=== PATIENT | male | born 1980 | race Caucasian/White ===

== ENCOUNTER 2017-04-04 09:36 | Emergency (ER) | payer OTHER ==
[2017-04-04 09:47] VITALS: BMI 36.1
--- NOTE | 2017-04-04 09:56 | PDOC ---
Attending Attestation - Physicial Exam PE: 04/04/17 10:53 GENERAL: Awake, alert, and fully oriented, in no acute distress HEAD: No signs of trauma EYES: PERRLA, EOMI, sclera anicteric, conjunctiva clear ENT: Auricles normal inspection, hearing grossly normal, nares patent, oropharynx clear without exudates. Moist mucosa NECK: Normal ROM, supple, no lymphadenopathy, JVD, or masses LUNGS: Breath sounds equal, clear to auscultation bilaterally. No wheezes, and no crackles HEART: Regular rate and rhythm, normal S1 and S2, no murmurs, rubs or gallops ABDOMEN: Soft, nontender, normoactive bowel sounds. No guarding, no rebound. No masses EXTREMITIES: Normal range of motion, no edema. No clubbing or cyanosis. No cords, erythema, or tenderness NEUROLOGICAL: Cranial nerves II through XII grossly intact. Normal speech, normal gait SKIN: Warm, Dry, normal turgor, no rashes or lesions noted. - Medical Decision Making 04/04/17 10:54 Documentation prepared by Lane Armstrong, acting as medical csr for Esther Seals DO. <Lane Armstrong - Last Filed: 04/04/17 12:17> - Resident Resident Name: Tay Neal - ED Attending Attestation I have performed the following: I have examined & evaluated the patient, The case was reviewed & discussed with the resident, I agree w/resident's findings & plan, Exceptions are as noted - HPI HPI: 04/04/17 10:40 36yo male with a hx of cardiomyopathy/myocarditis from a back surgery in the past presents for intermittent episodes of CP x weeks. Saw his PMD on tuesday, Dr. Cool, who recommended coming to the ED next time he has cp. No longer on Lasix. Coreg dose reduced to 12.5. Last stress test was about 6m ago. No hx of cardiac cath in the past. States driving today. States diaphoresis, midsternal cp, assoc nausea. No sob. No leg cramping/calf swelling, no recent travel. NO pleuritic cp. No cough. No f/c. No v. C/o diarrhea 3 episodes per day x 3 days. No urinary complaints. No radiation of the pain. No other complaints. - Medical Decision Making 04/04/17 10:09 I, Dr. Esther Seals, DO, attest that this document has been prepared under my direction and personally reviewed by me in its entirety. I further attest, that it accurately reflects all work, treatment, procedures and medical decision -making performed by me. 04/04/17 10:47 a/p: 36yo male with intermittent episodes of CP (never during exercise - usually at work/driving to work) -ekg -labs -trop -cxr -re-eval 04/04/17 15:20 repeat ekg: sinus at 80, nl axis, nl interval, no acute st/t wave findings 04/04/17 16:07 repeat lab work shows normal troponin. repeat ekg shows no acute st/t wave findings. pt stable for d/c to home. follow up with his PMD <Esther Seals - Last Filed: 04/04/17 16:11> Discharge Disposition - Discharge Dispostion Last Admission D/C Date: 03/20/16 Admit: No <Esther Seals - Last Filed: 04/04/17 16:11> - Diagnosis Palpitations - Discharge Dispostion Disposition: HOME Condition at time of disposition: Stable - Referrals Referrals: Gopal Cool MD [Primary Care Provider] - - Patient Instructions Printed Discharge Instructions: DI for Atypical Chest Pain Additional Instructions: You were seen for a sensation of your heart racing and some chest discomfort. We took a look at your heart enzymes and EKGs that were all negative for any new heart damage. We spoke with your PCP and we agreed that you should go home, take it easy for a the days and make sure to follow up with him as soon as you can. Please return to the ED if you have worsening chest pain or other concerning symptoms. - Post Discharge Activity Work/School Note: Back to Work Heart Score/ECG Review - ECG Intrepretation Comment:: 04/04/17 10:09 sinus at 88, nl axis, nl interval, nonspecific t wave inversions III, no achanges from prior 03/17/16 <Esther Seals - Last Filed: 04/04/17 16:11>
[2017-04-04] MEDS ORDERED: ASPIRIN 81 MG CHEWABLE TABLETS PO ONE (10:32)
[2017-04-04] MEDS ORDERED: ASPIRIN 81 MG CHEWABLE TABLETS ONE (10:46)
--- NOTE | 2017-04-04 10:49 | PDOC ---
History of Present Illness - General Chief Complaint: Chest Pain Stated Complaint: CHEST PAIN - History of Present Illness Initial Comments: 36 year old male with PMH of CHF (post myocarditis in the setting of spinal surgery), chronic back pain, and GERD presenting for chest discomfort, palpitations, nausea, and generally feeling unwell briefly earlier today. He has had similar chest discomfort and palpitations over the past few years but they weren't as bad and weren't as frequent. Over the past 6 months they have become more frequent and more bothersome. He relates the onset of these episodes to his stress levels related to work. In fact, he was returning to work from his vacation and began contemplating scaling back his work duties when this particular episode came on. It resolved after approximately 10 minutes although he is still have a "heart racing" sensation. Only admits to nausea and facial flushing as a co-presenting symptom. Had a negative stress test a few months prior. Denies SOB, vomiting, pain, radiation of sensation, paresthesias, numbness, cough, or other symptoms. His PCP is his uncle Gopal Cool. 04/04/17 10:39 Past History - Past Medical History Allergies/Adverse Reactions: Allergies Allergy/AdvReac Type Severity Reaction Status Date / Time No Known Allergies Allergy Verified 04/04/17 09:47 Home Medications: Ambulatory Orders Pantoprazole Sodium [Protonix -] 40 mg PO DAILY 09/17/15 Atorvastatin Ca [Lipitor] 20 mg PO HS 03/17/16 Oxycodone HCl [Oxycodone HCl ER] 10 mg PO QID PRN 03/17/16 Carvedilol [Coreg] 12.5 mg PO BID 04/04/17 Anemia: No Asthma: No Cardiac Disorders: Yes (MYOCARDITIS) CVA: No COPD: No CHF: No Dementia: No Diabetes: No GI Disorders: Yes Disorders: No HTN: No Hypercholesterolemia: Yes Liver Disease: No Seizures: No Thyroid Disease: No Other medical history: PAIN - Surgical History Abdominal Surgery: Yes ("TUMMY TUCK") Appendectomy: No Cardiac Surgery: No Cholecystectomy: No Lung Surgery: No Neurologic Surgery: No Orthopedic Surgery: Yes - Immunization History Immunization Up to Date: No - Psycho/Social/Smoking Cessation Hx Anxiety: No Suicidal Ideation: No Smoking History: Former smoker Have you smoked in the past 12 months: No If you are a former smoker, when did you quit?: 7 YEARS + Information on smoking cessation initiated: No Hx Alcohol Use: No Drug/Substance Use Hx: No Substance Use Type: None Hx Substance Use Treatment: No Review of Systems - Review of Systems Constitutional: No: Chills, Diaphoresis, Fever HEENTM: No: Blurred Vision, Ear Pain Respiratory: No: Cough, Orthopnea, Shortness of Breath Cardiac (ROS): Yes: Palpitations, Chest Tightness. No: Chest Pain, Edema, Lightheadedness, Syncope ABD/GI: No: Diarrhea, Vomiting, Indigestion : No: Dysuria, Discharge, Frequency Musculoskeletal: Yes: Back Pain, Joint Pain Neurological: No: Headache, Numbness Psychiatric: Yes: Stressors *Physical Exam - Vital Signs Last Vital Signs Temp Pulse Resp BP Pulse Ox 97.8 F 85 18 154/100 99 04/04/17 09:38 04/04/17 09:38 04/04/17 09:38 04/04/17 09:38 04/04/17 09:38 - Physical Exam General Appearance: Yes: Nourished, Appropriately Dressed. No: Apparent Distress HEENT: positive: EOMI, SHREE, Normal ENT Inspection Neck: positive: Trachea midline, Normal Thyroid, Supple. negative: Tender, Rigid Respiratory/Chest: positive: Lungs Clear, Normal Breath Sounds. negative: Chest Tender, Respiratory Distress Cardiovascular: positive: Regular Rhythm, Tachycardia Gastrointestinal/Abdominal: positive: Normal Bowel Sounds, Flat, Soft. negative : Tender, Organomegaly Musculoskeletal: positive: Normal Inspection Extremity: positive: Normal Inspection Integumentary: positive: Normal Color, Dry, Warm, Other (Heavily tatood individual across his entire body from his neck downward. No signs of rash or skin breakage.) Neurologic: positive: Fully Oriented, Alert, Normal Mood/Affect Heart Score/ECG Review - History History: Slightly suspicious - Electrocardiogram EKG: Normal - Age Age: </= 45 - Risk Factors Risk Factors Heart Score: Yes Hx Hypercholesterolemia, Yes Hx Hypertension Based on the list above the patient has:: 1-2 risk factors - Troponin Troponin: </= normal limit - Score Heart Score - Total: 1 - ECG Intrepretation Rhythm: Regular Rhythm - [place]: Normal - ST and T Non Specific ST-T Wave changes: Yes Comment:: V2, v3, V4 ST wave changes are chronic per his EKG from 03/17/16 04/04/17 10:59 ED Treatment Course - LABORATORY CBC & Chemistry Diagram: 04/04/17 11:15 04/04/17 11:15 - RADIOLOGY Radiology Studies Ordered: Category Date Time Status CHEST PA & LAT [RAD] Stat Radiology 04/04/17 10:33 Ordered Medical Decision Making - Medical Decision Making 36 year old male with PMH of post op myocarditis and CHF presenting with palpitations and chest discomfort. Although he has a low Heart score of 1, he had myocarditis in the past and is at risk for cardiac event. EKG showing the same ST changes from last year. Will get cardiac panel, CMP, CBC, BNP, and CXR. Stress test negative a few months prior. 04/04/17 10:59 Trop negative. CK elevated to 800s. Cr. 1.2. Per conversation with his PCP Dr. Gopal Cool, he is OK to send patient home with follow up. Will draw a second Troponin and EKG negative at 15:15 and discharge patient given no abnormalities. He will follow up with Gopal Cool in the next few days. 04/04/17 12:51 04/04/17 19:31 *DC/Admit/Observation/Transfer Diagnosis at time of Disposition: Palpitations - Discharge Dispostion Disposition: HOME Condition at time of disposition: Stable Admit: No - Referrals Referrals: Gopal Cool MD [Primary Care Provider] - - Patient Instructions Printed Discharge Instructions: DI for Atypical Chest Pain Additional Instructions: You were seen for a sensation of your heart racing and some chest discomfort. We took a look at your heart enzymes and EKGs that were all negative for any new heart damage. We spoke with your PCP and we agreed that you should go home, take it easy for a the days and make sure to follow up with him as soon as you can. Please return to the ED if you have worsening chest pain or other concerning symptoms. - Post Discharge Activity Work/School Note: Back to Work
[2017-04-04 11:23] LABS: BASOPHIL 0.5 % (0-2.0); EOSINOPHIL 1.6 % (0-4.5); MCH 28.1 pg (25.7-33.7); MCHC 33.7 g/dl (32.0-35.9); MEAN CELL VOLUME 83.5 fl (80-96); MEAN PLT VOLUME 8.9 fl (7.5-11.1); NEUTROPHILS 58.8 % (42.8-82.8); PLATELET COUNT 166 K/MM3 (134-434); RDW 13.7 % (11.9-15.9); WHITE BLOOD COUNT 6.3 K/mm3 (4.0-10.0)
[2017-04-04] MEDS ORDERED: oxyCODONE HCL 5 MG TABLET PO ONE (11:24)
[2017-04-04 11:48] LABS: ALBUMIN 3.8 g/dl (3.4-5.0); ANION GAP 10 (8-16); CALCIUM 8.9 mg/dL (8.5-10.1); CO2 24 mmol/L (21-32); CREATININE 1.2 mg/dL (0.7-1.3); GLUCOSE,RANDOM 99 mg/dL (74-106); MAGNESIUM 1.9 mg/dL (1.8-2.4); PHOSPHOROUS 3.4 mg/dL (2.5-4.9); SGOT/AST 44 U/L (15-37); SGPT/ALT 71 U/L (12-78)
[2017-04-04] MEDS ORDERED: oxyCODONE HCL 5 MG TABLET ONE (11:49)
[2017-04-04 11:51] LABS: ALK PHOS 140 U/L (45-117); BILIRUBIN,TOTAL 0.8 mg/dL (0.2-1.0); CPK 848 IU/L (39-308); TOT PROT 7.2 g/dl (6.4-8.2)
[2017-04-04 11:52] LABS: TROPONIN I < 0.02 ng/ml (0.00-0.05)
[2017-04-04] MEDS ORDERED: SODIUM CHLORIDE 0.9% 1000 ML INFUS.BAG IV ONE (11:52)
[2017-04-04 14:42] VITALS: TEMP 98.2
[2017-04-04 15:47] LABS: CPK 677 IU/L (39-308); TROPONIN I < 0.02 ng/ml (0.00-0.05)
[2017-04-04 16:55] VITALS: BP 135/84; PULSE 82
--- NOTE | 2017-04-04 21:24 | EKG ---
Test Reason : Blood Pressure : / mmHG Vent. Rate : 080 BPM Atrial Rate : 080 BPM P-R Int : 160 ms QRS Dur : 080 ms QT Int : 320 ms P-R-T Axes : 039 033 020 degrees QTc Int : 369 ms NORMAL SINUS RHYTHM NORMAL ECG WHEN COMPARED WITH ECG OF 04-APR-2017 09:45, NO SIGNIFICANT CHANGE WAS FOUND Confirmed by JYOTI BECK MD ([id number]) on 04/04/2017 9:24:27 PM Referred By: Confirmed By:JYOTI BECK MD
--- NOTE | 2017-04-04 21:30 | EKG ---
Test Reason : Blood Pressure : / mmHG Vent. Rate : 088 BPM Atrial Rate : 088 BPM P-R Int : 150 ms QRS Dur : 084 ms QT Int : 318 ms P-R-T Axes : 045 046 020 degrees QTc Int : 384 ms NORMAL SINUS RHYTHM CANNOT RULE OUT ANTERIOR INFARCT , AGE UNDETERMINED ABNORMAL ECG WHEN COMPARED WITH ECG OF 17-MAR-2016 15:46, NO SIGNIFICANT CHANGE WAS FOUND Confirmed by JYOTI BECK MD ([id number]) on 04/04/2017 9:30:28 PM Referred By: Confirmed By:JYOTI BECK MD
== END 2017-04-04 16:40 | disposition home or self-care (01) ==
LOC: JER 09:36
DX: R00.2 Palpitations (principal)
CPT/HCPCS: 36415; 71020-TC; 80053; 82553; 83735; 83880; 84100; 84484; 85025; 93005; 93010; 99284-25

== ENCOUNTER 2017-08-10 05:53 | Day surgery (SDC) | payer OTHER ==
[2017-08-03 18:52] VITALS: BMI 34.7
--- NOTE | 2017-08-04 10:53 | HP ---
DATE OF ADMISSION: 08/10/2017 DATE OF SURGERY: 08/10/2017 REASON FOR ADMISSION: Back lipoma x2. BRIEF HISTORY: This is a 36-year-old gentleman with 2 lipomas on his right back. The one (most lateral lipoma) causes him exquisite discomfort, and because of that, he wishes to have both of these removed. PAST MEDICAL HISTORY: Significant for peptic ulcer disease, coronary artery disease, mild congestive heart failure, ejection fraction approximately 50%. PAST SURGICAL HISTORY: Patient has had a multitude of back surgeries, orthopedic procedures on hips, elbows, and knees. ALLERGIES: None. SOCIAL HISTORY: Patient does not smoke. He drinks socially. MEDICATIONS: Coreg 12.5 mg b.i.d., Protonix, aspirin, and a multivitamin. PHYSICAL EXAMINATION: Lungs: Clear. Heart: Regular rate and rhythm. Abdomen: Soft. Back: Patient has a midline scar in his back. Approximately 2 fingerbreadths above the top of the scar line and 3 fingerbreadths to the right is a soft tissue mass that is 1.5 to 2 cm in size and oblong in shape. It is oriented almost transversely/obliquely. The mass is fairly soft, well demarcated. From that mass, 4 fingerbreadths more lateral and at a 30-degree angle inferiorly is a second mass that is noted of similar nature and character. That second mass is the one that is exquisitely tender even on exam. No overlying skin changes to suggest infection or inflammation. IMPRESSION/PLAN: Back lipoma x2. We will plan for excision in the operating room under local anesthesia. The indications, alternatives, and complications discussed. Questions answered. We will plan to obtain written consent the day of surgery. Manuel UMANZOR [id number] cc: Gopal Cool MD
[2017-08-10] MEDS ORDERED: LIDOCAINE HCL 1%, 10 MG/ML (20ML VIAL) ONE (07:18)
[2017-08-10] MEDS ORDERED: ceFAZolin SODIUM 1 GM VIAL ONE (07:41)
[2017-08-10] MEDS ORDERED: DEXAMETHASONE SOD PHOSPHATE 4 MG/1 ML VIAL ONE (07:42)
[2017-08-10] MEDS ORDERED: SUCCINYLCHOLINE CHLORIDE 200 MG/10 ML VIAL ONE (07:42)
[2017-08-10] MEDS ORDERED: MIDAZOLAM HCL 2 MG/2 ML SINGLE DOSE VIAL ONE ×2 (07:42→08:01)
[2017-08-10] MEDS ORDERED: KETOROLAC TROMETHAMINE 30 MG/1 ML VIAL ONE (07:42)
[2017-08-10] MEDS ORDERED: PROPOFOL 20 ML ONE (07:42)
[2017-08-10] MEDS ORDERED: ONDANSETRON 4 MG/2 ML VIAL ONE (07:42)
[2017-08-10] MEDS ORDERED: KETAMINE HCL 200 MG/20 ML VIAL ONE (08:02)
[2017-08-10] MEDS ORDERED: LIDOCAINE 1% P/F 10 MG/ML VIAL INF ONE (08:08)
[2017-08-10 08:47] VITALS: TEMP 97.4
[2017-08-10] MEDS ORDERED: oxyCODONE HCL 5 MG TABLET ONE (08:54)
[2017-08-10 09:27] VITALS: BP 123/82; PULSE 84
--- NOTE | 2017-08-10 09:32 | OP ---
DATE OF OPERATION: 08/10/2017 PREOPERATIVE DIAGNOSIS: Back lipoma x2. POSTOPERATIVE DIAGNOSIS: Back lipoma x2. PROCEDURE: Excision, back lipoma x2, with a total of 8-cm wound closure. SURGEON: Curtis Parker MD GREENSMAN: None. ANESTHESIA: Allen Sr MD (MAC/1% lidocaine without epinephrine, approximately 8 mL). ESTIMATED BLOOD LOSS: Minimal. SPECIMEN: Back lipoma x2. INDICATION FOR PROCEDURE: This is a 36-year-old gentleman with 2 back lipomas that cause him discomfort. He wished to have these removed. Patient identified and appropriately positioned on the operating room table. The area prepped and draped in the usual sterile fashion with ChloraPrep. Lidocaine 1% without epinephrine was used for local anesthesia, approximately 8 mL. Two 4-cm incisions were made overlying the area of the lipomas total for 8 cm. The lipomas were then sharply excised intact and en bloc. Hemostasis achieved with direct pressure as needed. The dermis reapproximated with interrupted inverted 3-0 Vicryl suture and the skin closed with 4-0 subcuticular Biosyn on both sites. At the conclusion of the case, sponge and instrument counts correct. ATTESTATION: Brief operative note hand written on the preprinted form. [facility] queried prior to giving narcotics. Manuel UMANZOR [id number] cc: Gopal Cool MD
[2017-08-10] MEDS ORDERED: oxyCODONE HCL 5 MG TABLET PO PRN ×2 (09:42)
[2017-08-10] MEDS ORDERED: ACETAMINOPHEN 325 MG TABLET (FP) PO PRN (09:42)
[2017-08-10] MEDS ORDERED: ONDANSETRON 4 MG/2 ML VIAL IVPUSH PRN (09:42)
[2017-08-10] MEDS ORDERED: LACTATED RINGERS SOLUTION 1,000 ML IV SCH (09:45)
== END 2017-08-10 09:29 | disposition home or self-care (01) ==
LOC: FASU 05:53
PROVIDERS: ATTEND Surgery
PROC: 0JB70ZZ Excision of Back Subcutaneous Tissue and Fascia, Open Approach (ICD-10-PCS; principal; 2017-08-10 08:08)
DX: D17.1 Benign lipomatous neoplasm of skin and subcutaneous tissue of trunk (principal); I25.10 Atherosclerotic heart disease of native coronary artery without angina pectoris; I50.9 Heart failure, unspecified

== ENCOUNTER 2017-11-30 09:38 | Emergency (ER) | payer OTHER ==
[2017-11-30 09:56] VITALS: BMI 34.0
[2017-11-30 11:07] LABS: BASO % 0.6 % (0-2.0); EOS % 1.1 % (0-4.5); HEMATOCRIT 51.4 % (35.4-49); HEMOGLOBIN 17.5 GM/dL (11.7-16.9); LYMPH % 23.7 % (8-40); MCH 29.8 pg (25.7-33.7); MEAN CELL VOLUME 87.7 fl (80-96); MEAN PLT VOLUME 8.8 fl (7.5-11.1); MONO % 7.4 % (3.8-10.2); NEUT % 67.2 % (42.8-82.8); PLATELET COUNT 204 K/MM3 (134-434); RBC 5.85 M/mm3 (4.00-5.60); RDW 13.8 % (11.9-15.9); WHITE BLOOD COUNT 6.9 K/mm3 (4.0-10.0)
--- NOTE | 2017-11-30 11:31 | PDOC ---
History of Present Illness - General History Source: Patient Exam Limitations: No Limitations - History of Present Illness Initial Comments: 11/30/17 11:46 The patient is a 37 year old male with history of chronic back pain s/p L4-L5 diskectomy c/b myocarditis (last known EF 50), with frequent sacroiliac spinal injections for pain, who presents to the ED complaining of diffuse tingling to the bilateral upper and lower extremities, trunk, and face that began last night. He reports he had a injection to his SI joint yesterday. A few hours later, he began to experience his diffuse tingling sensation which was associated with nausea and a "flushed face". His tingling lasted for several hours and is now somewhat improved. The patient denies any headache or blurred vision. Denies focal weakness, stiff neck. Denies fevers/chills. He denies chest pain or shortness of breath. She does endorse chronic bilateral lower extremity swelling, worse on the left side, unchanged. Reports multiple negative DVT studies to evaluate the edema. Denies possible exposure to ticks. The patient does note he has been on a Keto diet for the past several weeks ( high fat and protein, restricted carbohydrates). He has had several of the same injections in the past without adverse effect. <Marisa Harper - Last Filed: 11/30/17 16:27> <Paco Whitman - Last Filed: 12/02/17 20:24> - General Chief Complaint: CVA/TIA Stated Complaint: NUMBNESS IN BODY Time Seen by Provider: 11/30/17 10:05 Past History <Marisa Harper - Last Filed: 11/30/17 16:27> - Past Medical History Anemia: No Asthma: No Cancer: No Cardiac Disorders: Yes (DEVELOPED MYOCARDITIS AFTER DISCECTOMY IN 2008) CVA: No COPD: No CHF: No DVT: No Dementia: No Diabetes: No GI Disorders: Yes Disorders: No HTN: No Hypercholesterolemia: No Liver Disease: No Seizures: No Thyroid Disease: No - Surgical History Abdominal Surgery: Yes ("TUMMY TUCK") Appendectomy: No Cardiac Surgery: No Cholecystectomy: No Lung Surgery: No Neurologic Surgery: No Orthopedic Surgery: Yes (DISCECTOMY WITH FUSION 2008) - Immunization History Immunization Up to Date: No - Suicide/Smoking/Psychosocial Hx Smoking History: Former smoker Have you smoked in the past 12 months: No If you are a former smoker, when did you quit?: 1999 Information on smoking cessation initiated: No Hx Alcohol Use: No Drug/Substance Use Hx: No Substance Use Type: None Hx Substance Use Treatment: No <Paco Whitman - Last Filed: 12/02/17 20:24> - Past Medical History Allergies/Adverse Reactions: Allergies Allergy/AdvReac Type Severity Reaction Status Date / Time No Known Allergies Allergy Verified 11/30/17 09:49 Home Medications: Ambulatory Orders Pantoprazole Sodium [Protonix -] 40 mg PO DAILY 09/17/15 Oxycodone HCl [Oxycodone HCl ER] 10 mg PO QID PRN 03/17/16 Carvedilol [Coreg] 12.5 mg PO BID 04/04/17 Aspirin Coated [Ecotrin -] 81 mg PO DAILY 08/03/17 Atorvastatin Ca [Lipitor] 40 mg PO HS 08/03/17 Review of Systems - Review of Systems Able to Perform ROS?: Yes Comments:: 11/30/17 11:46 GENERAL/CONSTITUTIONAL: No fever or chills. HEAD, EYES, EARS, NOSE AND THROAT: No change in vision. No ear pain or discharge. No sore throat. GASTROINTESTINAL: No nausea, vomiting, diarrhea or constipation. GENITOURINARY: No dysuria, frequency, or change in urination. CARDIOVASCULAR: No chest pain or shortness of breath. RESPIRATORY: No cough, wheezing, or hemoptysis. MUSCULOSKELETAL: No joint or muscle swelling or pain. No neck or back pain. SKIN: No rash NEUROLOGIC: +Tingling (face, trunk, b/l UE and LE). No headache, vertigo, loss of consciousness, or change in strength/sensation. ENDOCRINE: No increased thirst. No abnormal weight change. HEMATOLOGIC/LYMPHATIC: No anemia, easy bleeding, or history of blood clots. ALLERGIC/IMMUNOLOGIC: No hives or skin allergy. <Marisa Harper - Last Filed: 11/30/17 16:27> *Physical Exam - Vital Signs Last Vital Signs Temp Pulse Resp BP Pulse Ox 97.8 F 80 17 117/70 98 11/30/17 09:49 11/30/17 09:49 11/30/17 09:49 11/30/17 09:49 11/30/17 10:27 - Physical Exam Comments: 11/30/17 11:53 GENERAL: Awake, alert, and fully oriented, in no acute distress HEAD: No signs of trauma EYES: PERRLA, EOMI, sclera anicteric, conjunctiva clear ENT: Auricles normal inspection, hearing grossly normal, nares patent, oropharynx clear without exudates. Moist mucosa NECK: Normal ROM, supple, no lymphadenopathy, JVD, or masses LUNGS: Breath sounds equal, clear to auscultation bilaterally. No wheezes, and no crackles HEART: Regular rate and rhythm, normal S1 and S2, no murmurs, rubs or gallops ABDOMEN: Soft, nontender, normoactive bowel sounds. No guarding, no rebound. No masses EXTREMITIES: Normal range of motion. No clubbing or cyanosis. No cords, erythema, or tenderness. L>R calf non pitting edema. BACK: No midline spinal tenderness in cervical/thoracic/lumbar region NEUROLOGICAL: Normal speech, cranial nerves intact, negative pronator drift, 5/ 5 strength in all 4 extremities, normal sensation to light touch in all 4 extremities, normal cerebellar exam, normal gait, normal reflexes and tone SKIN: Warm, Dry, normal turgor, no rashes or lesions noted. <Marisa Harper - Last Filed: 11/30/17 16:27> - Vital Signs Last Vital Signs Temp Pulse Resp BP Pulse Ox 97.8 F 80 17 117/70 98 11/30/17 09:49 11/30/17 09:49 11/30/17 09:49 11/30/17 09:49 11/30/17 10:27 <Paco Whitman - Last Filed: 12/02/17 20:24> ED Treatment Course - LABORATORY CBC & Chemistry Diagram: 11/30/17 10:55 11/30/17 10:55 - ADDITIONAL ORDERS Additional order review: 11/30/17 10:55 RBC 5.85 H MCV 87.7 MCHC 34.0 RDW 13.8 MPV 8.8 Neutrophils % 67.2 Lymphocytes % 23.7 D Monocytes % 7.4 Eosinophils % 1.1 Basophils % 0.6 <Marisa Harper - Last Filed: 11/30/17 16:27> - LABORATORY CBC & Chemistry Diagram: 11/30/17 10:55 11/30/17 10:55 - ADDITIONAL ORDERS Additional order review: 11/30/17 10:55 RBC 5.85 H MCV 87.7 MCHC 34.0 RDW 13.8 MPV 8.8 Neutrophils % 67.2 Lymphocytes % 23.7 D Monocytes % 7.4 Eosinophils % 1.1 Basophils % 0.6 - RADIOLOGY Radiology Studies Ordered: Category Date Time Status HEAD CT WITHOUT CONTRAST [CT] Stat CT Scan 11/30/17 10:47 Ordered <Paco Whitman - Last Filed: 12/02/17 20:24> Medical Decision Making - Medical Decision Making 11/30/17 12:[address] without contrast, read and reviewed by Dr. Soliz Impression: No acute intracranial hemorrhage, mass effect, hydrocephalus, or calvarial fracture. 11/30/17 16:[address] without contrast. Impression: The alignment is satisfactory. No gross fracture or subluxation is seen. Minimal degenerative disc disease and antterior spondylosis at C5-C6 and C6-C7 level. C4-C5 minimal left paracentral disc bulge and posterior spur formation without cord or nerve root impingement. <Marisa Harper - Last Filed: 11/30/17 16:27> - Medical Decision Making 11/30/17 11:27 37-year-old male with a history of chronic back pain, cardiomyopathy now with recovered EF of 50-60%, hyperlipidemia presents the emergency department with diffuse body numbness, worse peripherally. Vitals within normal limits. Neurologic exam completely normal. No exposure to ticks recently. Differential includes but not limited to anemia versus electrolyte abnormality vs neuropathy -labs -UA -CTH -IVF -neuro c/s 11/30/17 12:55 CTH negative 11/30/17 13:25 Labs wnl, excpt Mg 1.7 -> 1G Mg sulfate ordered. Pt states no change in sxs after IVF. Neuro c/s placed, awaiting call back 11/30/17 13:[address] Amanda (neuro), sxs unlikely result of SI injection yesterday as he has sxs in UE's as well. Dr. Amanda says symptoms unlikely to be neurologic, possibly psychosomatic? He recommends also getting CT of cervical spine, however, given sxs in all [address] c-spine ordered, pt updated at this time about need for CT scan of neck as well. 11/30/17 15:26 CT scan still pending, will call radiology dept. 11/30/17 16:20 CT cervical spine negative for acute pathology. Call placed to Dr. Gopal Cool , his PMD, awaiting call back. 11/30/17 16:[address] Gopal Cool. All workup reviewed, wants to see pt in 1 -2 days. Plan discussed with patient, who was upset about long stay in ED, however explained to patient that he required multiple studies including 2 CT scans, blood work, urinalysis, and specialist consultation to work up his symptoms. Pt expresses understanding and requests DC home. I discussed the physical exam findings, ancillary test results and final diagnoses with the patient. I answered all of the patient's questions. The patient was satisfied with the care received and felt comfortable with the discharge plan and treatment plan. The patient will call their primary care physician within 24 hours to arrange follow-up and will return to the Emergency Department with any new, persistent or worsening symptoms. <Paco Whitman - Last Filed: 12/02/17 20:24> *DC/Admit/Observation/Transfer - Attestations Scribe Attestion: 11/30/17 11:54 Documentation prepared by Marisa Harper, acting as medical affairs manager for Paco Whitman MD. <Marisa Harper - Last Filed: 11/30/17 16:27> - Discharge Dispostion Decision to Admit order: No - Attestations Physician Attestion: 11/30/17 16:53 I, Dr. Paco Whitman MD, attest that this document has been prepared under my direction and personally reviewed by me in its entirety. I further attest, that it accurately reflects all work, treatment, procedures and medical decision -making performed by me. <Paco Whitman - Last Filed: 12/02/17 20:24> Diagnosis at time of Disposition: Numbness and tingling - Discharge Dispostion Disposition: HOME Condition at time of disposition: Stable - Referrals Referrals: Gopal Cool MD [Primary Care Provider] - Zeferino Amanda MD [Staff Physician] - - Patient Instructions Printed Discharge Instructions: DI for Numbness/tingling Additional Instructions: As discussed, follow up with Dr. Cool within 1-[address] Shah for a follow up appointment with neurology within 1 week. Return to the emergency department if you have any new, worsening, or concerning symptoms. - Post Discharge Activity
[2017-11-30] MEDS ORDERED: SODIUM CHLORIDE 1,000 ML IV STA (11:32)
[2017-11-30 12:23] LABS: ALBUMIN 3.3 g/dl (3.4-5.0); ANION GAP 5 (8-16); BLOOD UREA NITROGEN 19 mg/dL (7-18); CALCIUM 9.4 mg/dL (8.5-10.1); CHLORIDE 106 mmol/L (98-107); CO2 29 mmol/L (21-32); GLUCOSE,RANDOM 100 mg/dL (74-106); MAGNESIUM 1.7 mg/dL (1.8-2.4); POTASSIUM 4.2 mmol/L (3.5-5.1); SGOT/AST 16 U/L (15-37); SGPT/ALT 12 U/L (12-78); SODIUM 140 mmol/L (136-145)
[2017-11-30 12:26] LABS: ALK PHOS 42 U/L (45-117); BILIRUBIN,TOTAL 0.3 mg/dL (0.2-1.0); CREATININE 0.7 mg/dL (0.7-1.3); TOT PROT 6.1 g/dl (6.4-8.2)
[2017-11-30] MEDS ORDERED: ACETAMINOPHEN 500 MG TABLET (FP) PO ONE (13:49)
[2017-11-30] MEDS ORDERED: ACETAMINOPHEN 325 MG TABLET (FP) ONE (14:31)
[2017-11-30 14:56] LABS: URINE APPEARANCE CLEAR; URINE BILIRUBIN NEGATIVE (<2.0 mg/dL); URINE COLOR YELLOW; URINE GLUCOSE (UA) NEGATIVE (NEGATIVE); URINE KETONE TRACE (NEGATIVE); URINE LEUK ESTERASE NEGATIVE (NEGATIVE); URINE NITRITE NEGATIVE (NEGATIVE); URINE UROBILINOGEN NEGATIVE mg/dL (0.2-1.0)
[2017-11-30 14:57] LABS: URINE PROTEIN 2+ (NEGATIVE)
[2017-11-30 14:58] LABS: EPI CELLS RARE /HPF (FEW); URINE MUCUS RARE
[2017-11-30 17:04] VITALS: BP 128/81; PULSE 81; TEMP 98.2
== END 2017-11-30 17:04 | disposition home or self-care (01) ==
LOC: JER 09:38
PROC: 3E0337Z Introduction of Electrolytic and Water Balance Substance into Peripheral Vein, Percutaneous Approach (ICD-10-PCS; principal; 2017-11-30)
PROC: 3E033GC Introduction of Other Therapeutic Substance into Peripheral Vein, Percutaneous Approach (ICD-10-PCS; 2017-11-30)
DX: R20.0 Anesthesia of skin (principal); M47.892 Other spondylosis, cervical region; E83.42 Hypomagnesemia; M54.5 Low back pain; G89.29 Other chronic pain; I42.8 Other cardiomyopathies
CPT/HCPCS: 36415; 70450-TC; 72125-TC; 80053; 81003; 81015; 83735; 85025; 87086; 99285-25; J7030